=== PATIENT | male | born 1980 | race Two or more races ===

== ENCOUNTER 2022-06-19 17:28 | Emergency (ER) | payer OTHER ==
[~2022-06-19] VITALS: Ht 180.3 cm; Wt 106.6 kg
[2022-06-19] MEDS ORDERED: CEFDINIR125 MG/5 M (17:39)
[2022-06-19] MEDS ORDERED: FLUCONAZOLE100 MG (17:40)
== END 2022-06-19 19:20 | disposition home or self-care (01) ==
LOC: ER 17:28
DX: L08.9 Local infection of the skin and subcutaneous tissue, unspecified (principal); I10 Essential (primary) hypertension

== ENCOUNTER 2022-06-30 16:32 | Emergency (ER) | payer OTHER ==
[~2022-06-30] VITALS: Ht 180.3 cm; Wt 104.3 kg
[~2022-06-30 16:32] MED LIST: CEFDINIR125 MG/5 M; FLUCONAZOLE100 MG
== END 2022-06-30 22:19 | disposition home or self-care (01) ==
LOC: ER 16:32
DX: B04 Monkeypox (principal)